=== PATIENT | female | born 1930 | race Caucasian/White ===

== ENCOUNTER 2018-01-12 09:15 | Day surgery (SDC) | payer MEDICARE ==
[~2018-01-12] VITALS: Ht 162.6 cm; Wt 90.5 kg
--- NOTE | ~2018-01-12 | OP ---
PATIENT NAME: SCOTT MCCRARY MEDICAL RECORD: [id number] :[birth year] LOCATION:[facility], [facility]IN [facility] ADMISSION DATE: SURGEON: LARA PACHECO MD DATE OF OPERATION: 01/12/2018 PROCEDURE: EGD with balloon dilatation, EGD with biopsy. DEVELOPMENT MGR: Lara Pacheco MD SCOPE: Olympus video gastroscope and a CRE Microvasive balloon from 45-60 Thai. MEDICATIONS: Per TIVA. The patient's indication for TIVA is hypertension and advanced age. She is 87 years old. She received 220 mg throughout this procedure, O2 at 4 liters. INDICATION FOR THE PROCEDURE: An abnormal CT, which was done in late November, showing the possibility of a mass in the fundus of the stomach. This was described as a 4.4-cm lobulated mass-like structure in the posterior gastric fundus. It was nonspecific. We are proceeding to evaluate this problem. The patient also had an upper GI, which revealed a normal stomach, normal duodenum, and some presbyesophagus, dysmotility with tertiary contractions in the esophagus. Additionally, the patient complains of dysphagia, which she attributes to difficulty in swallowing in the oropharyngeal area with some dysphagia noted in the distal esophagus. She will have an EGD this date for further evaluation. FINDINGS: Informed consent was given. The patient was made comfortable with the above medications. After reaching an adequate level of sedation by slow IV push, the patient was placed on her left side. The endoscope was then advanced under direct visualization through the posterior pharyngeal area and advanced to the distal esophagus. At the distal esophageal area, only mild inflammation was noted, but a slight stricture was observed and a CRE Microvasive balloon was placed in this area, dilated to 60-Thai, held in place for 1 minute without complication. We then took a few small biopsies of the gastroesophageal junction of minimal inflammation. The patient was also noted to have a very small hiatal hernia, which was observed both on direct and retroflex views. On entering the stomach, only mild inflammation was noted throughout the entire stomach. The patient did not have a mass in the gastric fundus. Photo documentation was obtained for verification. At the antral area, a histopathology NIK biopsy was taken of [id number]-[id number] inflammation. No ulcers. No erosions. The duodenal bulb to the second portion had mild inflammation observed and biopsies were obtained. The scope was then withdrawn. IMPRESSION: 1. No mass in the gastric fundus. Photo documentation obtained. 2. Distal esophageal inflammation, very mild in nature, biopsied. 3. Schatzki ring, which was dilated to 60-Thai without complication. 4. Small hiatal hernia. 5. Mild gastritis. Biopsy taken at the antrum looking for the presence of Helicobacter pylori. 6. Mild duodenitis. PLAN: We will ask the patient to stop omeprazole at a dose of 40 mg. This is a OPERATIVE REPORT [id number] SCOTT MCCRARY rather strong dose for the findings observed and omeprazole can cause calcium and iron deficiency and also leave the patient at risk for viral and bacterial GI gastroenteritis. We will start famotidine at a dose of 20 mg p.o. b.i.d. and this should be sufficient. She should use caution with the anti-inflammatory drugs. Follow reflux precautions stringently, both dietary and positional. We will also order a video fluoroscopic swallowing study as the patient does have some difficulty in the oropharyngeal area with swallowing. Return to clinic on a p.r.n. basis. TRANSINT:[id number] Voice Confirmation ID: [id number] DOCUMENT ID: [id number] LARA PACHECO MD CC: [id number] DICTATION DATE: 01/12/18 1242 BUSINESS PROCESS ANALYST: 01/12/18 1303 [facility] 01/12/18 [id number] [place] [address]
[2018-01-12 09:40] LABS: BASOPHILS 0.5 % (0-2); EOSINOPHILS 6.8 % (0-7); HEMATOCRIT 36.8 % (36.0-48.0); HEMOGLOBIN 11.8 g/dL (12-16); IMMATURE GRANULOCYTES 0.1 % (0-5); LYMPHOCYTES 28.9 % (15-50); MCH 27.7 pg (26.0-34.0); MCHC 32.1 g/dL (31.0-37.0); MCV 86.4 fL (80.0-100.0); MEAN PLATELET VOLUME 9.3 fL (7.4-10.4); MONOCYTES 9.9 % (2-11); NEUTROPHILS 53.8 % (40-80); PLATELET COUNT 294 10x3/uL (130-400); RBC 4.26 10x6/uL (4.00-5.40); RDW 15.5 % (11.5-14.5); WBC 7.4 10x3/uL (4.8-10.8)
[2018-01-12 09:53] LABS: ANION GAP 14.7 mmol/L (8-16); CALCIUM 9.3 mg/dL (8.5-10.1); CARBON DIOXIDE 25.9 mmol/L (21.0-32.0); CREATININE - SERUM 0.9 mg/dL (0.6-1.3); POTASSIUM - SERUM 3.6 mmol/L (3.5-5.1)
[2018-01-12] MEDS ORDERED: NORVASC10 MG PO (10:40)
[2018-01-12] MEDS ORDERED: BAYER CHEWABLE81 MG PO (10:41)
[2018-01-12] MEDS ORDERED: ZESTRIL40 MG PO (10:46)
[2018-01-12 11:13] VITALS: BP 147/62; Ht 162.6 cm; Wt 90.5 kg
== END 2018-01-12 13:36 | disposition home or self-care (01) ==
LOC: D.OPS 09:15
PROVIDERS: Anesthesiology
DX: K20.9 Esophagitis, unspecified (principal); K22.2 Esophageal obstruction; K44.9 Diaphragmatic hernia without obstruction or gangrene; K29.50 Unspecified chronic gastritis without bleeding; K29.80 Duodenitis without bleeding; Z01.812 Encounter for preprocedural laboratory examination; I10 Essential (primary) hypertension

== ENCOUNTER → 2018-01-29 12:07 | Outpatient (CLI) | payer MEDICARE ==
[2018-01-12 11:13] VITALS: BMI 34.2
[~2018-01-29 12:07] MED LIST: BAYER CHEWABLE81 MG PO; NORVASC10 MG PO; ZESTRIL40 MG PO
== END | disposition home or self-care (01) ==
LOC: D.RAD 12:07
DX: R13.12 Dysphagia, oropharyngeal phase (principal)